=== PATIENT | female | born 1990 | race Caucasian/White ===

== ENCOUNTER 2022-02-18 14:47 | Outpatient (CLI) | payer BC, SELFPAY ==
[2022-02-18 22:43] LABS: Chloride* 103 mmol/L (96-114); Sodium* 135 mmol/L (135-149)
[2022-02-18 22:46] LABS: Blood Urea Nitrogen* 14 mg/dL (5-24); Carbon Dioxide* 25 mmol/L (20-32); Creatinine* 0.8 mg/dL (0.5-1.5); Estimated Glomerular Filt Rate 101 ml/min
[2022-02-18 22:47] LABS: Calcium* 8.9 mg/dL (8.4-10.6); Glucose* 82 mg/dL (60-115)
== END 2022-02-18 14:48 | disposition home or self-care (01) ==
LOC: LKVREF 14:48
PROVIDERS: Visit Provider Emergency Medicine
DX: Z01.818 Encounter for other preprocedural examination (principal)
CPT/HCPCS: 80048

== ENCOUNTER 2022-03-02 07:20 | Day surgery (SDC) | payer BC, SELFPAY ==
[2022-03-02] VITALS (13 sets, daily range): BP systolic 113–148; BP diastolic 58–79; PULSE 65–88; RESP 16; TEMP 36.6–36.9; O2SAT 97–100; BMI 194.7
[2022-03-02] MEDS: LACTATED RINGERS 1000 ML 1,000 ML 100 ML IV ×4 (07:10→12:28)
[2022-03-02] MEDS: SODIUM CHLORIDE 0.9 % (FLUSH) 10 ML SYRINGE IVF (08:10)
[2022-03-02 08:24] LABS: Hemoglobin* 11.9 gm/dL (12.0-16.0)
[2022-03-02 08:34] LABS: Ur HCG Qualitative* Negative (Negative)
--- NOTE | 2022-03-02 09:11 | PM.PROC ---
Procedure Note Time Seen by Provider: 09:12 Date Seen: 03/02/22 Date of procedure: 03/02/[address] [facility] bill your pro fee for this procedure?: Yes Procedure: Preoperative diagnosis: 32-year-old G0 with undesired fertility. Postoperative diagnosis: Same. Procedure: Laparoscopic bilateral salpingectomy Anesthesia: General endotracheal Surgeon: Pavithra Perla MD Bicycle Subassembler: Pat Hinkle MD EBL: 5 mL Urine output: 100 mL clear urine IVF: 1000 ml Specimen: Bilateral fallopian tubes to pathology. Findings: On exam under anesthesia: The uterus was anteverted, less than 8 week size, mobile, without masses or nodularity palpable. Adnexa were without mass or fullness bilaterally. The uterus sounded to 8 cm. On laparoscopy: The uterus, bilateral fallopian tubes and ovaries all appeared normal. Normal appendix Procedure: Aquiles was taken to the operating room where general anesthetic was found to be adequate. She was placed in the dorsal lithotomy position and an exam under anesthesia was performed with findings stated above. She was then prepped and draped in a normal sterile manner. A Barnhart catheter was then placed. A bivalve speculum was then placed in the vaginal canal to visualize the cervix. The anterior lip of the cervix was grasped with an a long Allis clamp. The cervix was dilated to Hegar 6. Uterus was sounded to 8 cm. A Rami uterine manipulator was then placed. Attention was then turned to performing the laparoscopic portion of the procedure. All incisions were injected with 0.5% Marcaine prior to incision. A vertical 5 mm infraumbilical, incision, was made and a 5 mm trocar placed under direct visualization with the laparoscope. The abdomen was then insufflated with carbon dioxide gas to a pressure of 15 mm of mercury. To bilateral lower quadrant trocars were then placed under direct visualization. Both were placed approximately 3-4 finger breaths medial to the ischial crests. The right trocar was 5 mm the left trocar was 11 mm. A diagnostic laparoscopy was then performed with findings stated above. The left fallopian tube was grasped with a sliding grasper. The left fallopian tube was removed from the broad ligament using the LigaSure [place] dissecting forceps starting at the fimbriated end of the tube. Sequential pedicles were then formed to the level of the cornua. The tube was then removed at the cornua and removed from the abdomen through the 11 mm port. The right fallopian tube was removed in a similar manner. Excellent hemostasis was noted of all pedicles. The fascia in the left lower quadrant port using the Jude-Valeriano fascial closure device. The trocars were then removed under direct visualization. The CO2 gas was allowed to escape the infraumbilical port prior to its removal. All incisions were reapproximated using 4-0 Monocryl in a running subcuticular manner. Exofin skin adhesive was then applied and adhesive dressings applied over each incision. The uterine manipulator and Barnhart catheter were removed. The patient tolerated this procedure well. Sponge, lap and instrument counts were correct x2 at the end of the procedure and the patient was taken to the recovery area in stable condition. Patient received Toradol 30mg IV Prior to being awakened from anesthesia. Surgeon: Pavithra Perla MD
--- NOTE | 2022-03-02 10:05 | SUR.PREOP ---
home covid test negative from 03/01/22
--- NOTE | 2022-03-02 10:25 | W.ANESCHARGE ---
Anesthesia Charges Start Date/Time Anesthesia Start Date: 03/02/22 Anesthesia Start Time: 09:14 Stop Date/Time Anesthesia Stop Date: 03/02/22 Anesthesia Stop Time: 10:25 Summary Emergency: No
[2022-03-02] MEDS: fentaNYL 100 MCG/2 ML inj 50 MCG IVP ×2 (10:27→10:40)
--- NOTE | 2022-03-02 10:42 | P.PCN_ITS ---
Procedure Note Date Seen: 03/02/22 Date of procedure: 03/02/22 Will [facility] bill your pro fee for this procedure?: Yes Procedure: PREOPERATIVE DIAGNOSIS: Undesired fertility POSTOPERATIVE DIAGNOSIS: Undesired fertility PROCEDURE: Laparoscopic bilateral salpingectomies. SURGEON: Minda. BILLING COLLECTIONS SPECIALIST: Manan. ANESTHESIA: General endotracheal. COMPLICATIONS: None. ESTIMATED BLOOD LOSS: See operative report by Dr. Perla. FINDINGS: Normal appearing uterus, tubes, ovaries, appendix. PROCEDURE NOTE: Please see the operative report by Dr. Perla for full details of the procedure. I was asked to assist. I was scrubbed in for the entire procedure until closure of the abdominal incisions. I provided assistance with laparoscopic port placement, visualization and retraction, and with the bilateral salpingectomies from the right side. Surgeon: Pat Hinkle MD
[2022-03-02] MEDS: OXYCODONE 5 MG TABLET PO (11:15)
== END 2022-03-02 16:20 | disposition home or self-care (01) ==
PROVIDERS: Visit Provider Obstetrics & Gynecology
PROC: (CPT 58661; principal; 2022-03-02 08:45)
DX: Z30.2 Encounter for sterilization (principal)
CPT/HCPCS: 58661; 00851; 36415; 81025; 84703; 85018; 86850; 86900; 86901; 88302; A9270; J0330; J1100; J1885; J2250; J2405; J2704; J2710; J3010; J7120

== ENCOUNTER 2022-07-08 13:17 | Outpatient (CLI) | payer BC, SELFPAY | END 2022-07-08 13:18 | disposition home or self-care (01) | PROVIDERS: Visit Provider Family Medicine | DX: Z00.00 Encounter for general adult medical examination without abnormal findings (principal); D64.9 Anemia, unspecified; R63.5 Abnormal weight gain; Z13.1 Encounter for screening for diabetes mellitus | CPT/HCPCS: 80053; 82607; 82728; 83540; 83550; 84443 ==

== ENCOUNTER 2022-07-12 08:52 | Outpatient (CLI) | payer BC, SELFPAY | END 2022-07-12 08:53 | disposition home or self-care (01) | LOC: NFLDREF 07-13 12:35 | PROVIDERS: Visit Provider Family Medicine | DX: Z00.00 Encounter for general adult medical examination without abnormal findings (principal); D64.9 Anemia, unspecified; D72.829 Elevated white blood cell count, unspecified; R63.5 Abnormal weight gain; Z13.1 Encounter for screening for diabetes mellitus | CPT/HCPCS: 80061 ==

== ENCOUNTER 2023-04-28 08:33 | Outpatient (CLI) | payer BC, SELFPAY | END 2023-04-28 08:34 | disposition home or self-care (01) | PROVIDERS: PCP Family Medicine; Visit Provider Family Medicine | DX: Z00.00 Encounter for general adult medical examination without abnormal findings (principal); D64.9 Anemia, unspecified; E66.9 Obesity, unspecified; Z13.6 Encounter for screening for cardiovascular disorders | CPT/HCPCS: 80053; 80061; 84443 ==